=== PATIENT | female | born 2000 | race Caucasian/White ===

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

== ENCOUNTER → 2021-09-13 15:02 | Outpatient (BNVA) | payer BC, MEDICAID, SELFPAY | PROVIDERS: Family Provider Family Medicine; PCP Family Medicine; Visit Provider Nurse Practitioner Women's Health | DX: Z01.419 Encounter for gynecological examination (general) (routine) without abnormal findings (principal); Z12.72 Encounter for screening for malignant neoplasm of vagina | CPT/HCPCS: 88175 ==

== ENCOUNTER 2022-06-07 12:30 | Outpatient (CLI) | payer BC, MEDICAID, SELFPAY | END 2022-06-07 12:31 | disposition home or self-care (01) | LOC: SLEEP 06-08 12:56 | PROVIDERS: Family Provider Family Medicine; PCP Family Medicine; Visit Provider Physician Assistant | DX: G47.10 Hypersomnia, unspecified (principal) | CPT/HCPCS: G0399 ==

== ENCOUNTER 2022-10-11 11:56 | Outpatient (CLI) | payer BC, MEDICAID, SELFPAY ==
--- NOTE | 2022-10-11 11:45 | US_ITS ---
WS: [id number] ULTRASOUND LEFT BREAST HISTORY: Palpable LEFT breast mass, 22-year-old. COMPARISON: None available. TECHNIQUE: 2-D and Doppler. Ultrasound is directed to the superior LEFT breast at 11, 12 and 1:00 axes. No mass or soft tissue ab normality. US/US breast LT limited* [id number] IMPRESSION: BI-RADS: 1-Negative FOLLOW-UP: Age 40 LACK OF RADIOGRAPHIC EVIDENCE OF MALIGNANCY SHOULD NOT DELAY BIOPSY IF A CLINIC ALLY SUSPICIOUS MASS IS PRESENT.
== END 2022-10-11 11:57 | disposition home or self-care (01) ==
PROVIDERS: Visit Provider Nurse Practitioner Women's Health
DX: N63.20 Unspecified lump in the left breast, unspecified quadrant (principal)
CPT/HCPCS: 76642

== ENCOUNTER → 2023-03-18 17:27 | Outpatient (BNVA) | payer BC, MEDICAID, SELFPAY | PROVIDERS: Visit Provider Emergency Medicine | DX: M25.572 Pain in left ankle and joints of left foot (principal); M25.562 Pain in left knee; M25.472 Effusion, left ankle | CPT/HCPCS: 73562; 73610 ==

== ENCOUNTER → 2024-06-17 13:37 | Outpatient (BNVA) | payer BC, MEDICAID, SELFPAY | DX: Z98.84 Bariatric surgery status (principal) | CPT/HCPCS: 85025 ==

== ENCOUNTER 2025-03-26 06:45 | Emergency (ER) | payer MEDICAID, SELFPAY ==
[2025-03-26 07:04] VITALS: BP 154/86; PULSE 80; RESP 18; TEMP 37; O2SAT 97
--- NOTE | 2025-03-26 07:12 | W.ED.ABDPA2 ---
HPI - Abdominal Pain General: Chief Complaint: Abdominal Pain Stated Complaint: Low R ABD Pain going into back Time Seen by Provider: 03/26/25 06:56 History of Present Illness: 44-year-old female who presents to the emergency room with complaint of abdominal pain.. The initial stated complaints described lower right abdominal pain received the patient she indicated more upper abdominal pain particularly epigastric epigastric discomfort. She has previously had a Tahri-en-Y in January 2023 she has had her gallbladder out. No fever sweats or chills. She had some vaginal bleeding intermittent spotting nothing consistent. She denies dysuria urgency or frequency no history of kidney stones. Associated Symptoms: Denies chills, dysuria and fever(s) Related Data Home Medications ?Medication ?Instructions ?Recorded ?Confirmed levonorgestrel (Mirena) intrauterine 09/13/21 06/17/24 Previous Rx's ?Medication ?Instructions ?Recorded hydroxyzine HCl 10 mg tablet 10 mg PO TID PRN nausea and 12/18/23 vomiting #90 tabs Allergies Allergy/AdvReac Type Severity Reaction Status Date / Time NSAIDS (Non-Steroidal Allergy Unknown Verified 03/26/25 07:08 Anti-Inflamma Review of Systems Const: Denies: fever(s) or chills Card: Denies: chest pain Resp: Denies: dyspnea GI: Denies: abdominal pain : Denies: dysuria, urinary frequency or urinary urgency Musc: Denies: neck pain or back pain Skin/Breast: Denies: rash PFSH ED PFSH: Medical History GERD (gastroesophageal reflux disease) HAILE (generalized anxiety disorder) GLORIA (obstructive sleep apnea) Didn't tolerate CPAP Breast mass, left Benign Depression, controlled previously managed with prozac; 09/2019 managed w/o meds Hypertension -diagnosed with chronic hypertension in 2018 and has been on lisinopril prior to the . In the beginning of the was switched over to labetalol. She did not continue with medication after the and has not been evaluated by her PCP. Surgical History History of gastric bypass Tahir-en-y. Done in [facility]. 01/2023 [place] teeth extracted (~02/2021) History of cholecystectomy (~08/2019) History of (~05/30/19) primary low transverse delivery via Pfannenstiel incision. Double layer closure performed by Dr. Angeles at [facility] for arrest of dilation and descent Family History Family/Other Breast cancer Maternal aunt; diagnosed at age 40 Diabetes Paternal aunt, cousin Thyroid disease maternal aunt Colon cancer Paternal aunt; diagnosed at age 37 Father Diabetes Grandmother Diabetes Paternal Thyroid disease maternal Mother Thyroid disease Grandfather Stroke Paternal great grandfather Denies family history of Ovarian cancer Hypercholesteremia Hypertension Uterine cancer Social History Smoking and tobacco/nicotine status: never used tobacco/nicotine Substance/Drug Use: never Do you think of yourself as: Straight/Heterosexual Physical Exam Const: GENERAL APPEARANCE: cooperative ORIENTATION/CONSCIOUSNESS: Yes awake, Yes oriented to person, Yes oriented to place and Yes oriented to time HENMT: COMMON NORMALS: normocephalic, atraumatic and hearing grossly normal bilaterally HEAD & SCALP: normocephalic and atraumatic Resp: COMMON NORMALS: normal respiratory effort, No retractions, No use of accessory muscles and clear to auscultation bilaterally AUSCULTATION: clear to auscultation bilaterally Cardio: COMMON NORMALS: regular rate, regular rhythm and No murmurs present (Cardio) RATE: regular rate RHYTHM: regular rhythm GI: AUSCULTATION: Yes normoactive bowel sounds PALPATION: Yes Tenderness to palpation present (GI) (Epigastric right upper quadrant) and No Guarding due to palpation present (GI) Extremity: COMMON NORMALS: normal to inspection, capillary refill normal, no clubbing, cyanosis or edema, no calf tenderness and no pedal edema Neuro: SENSORIUM/ORIENTATION: Yes oriented to person, Yes oriented to place and Yes oriented to time Skin: COMMON NORMALS: no rashes or lesions noted GENERAL SKIN EXAM: no rashes or lesions noted Course Vital Signs: Vital signs: Vital Signs Temperature 98.6 F 03/26/25 07:04 Pulse Rate 73 03/26/25 08:02 Respiratory Rate 18 03/26/25 07:04 Blood Pressure 134/90 03/26/25 08:02 Pulse Oximetry 99 03/26/25 08:02 Oxygen Delivery Me thod Room Air 03/26/25 07:04 MDM - Abdominal Pain Medical Decision Making CBC UA CMP all negative CT did not show any acute pathology there is some air in the transverse colon retained stool suspect that may be causing abdominal cramping or colic. If they have continues to be benign. Discharge home clearcut diet for 24 hours advance as tolerated. Medical Records I reviewed the patient's medical records. Lab Data I reviewed the patient's lab results. 03/26/25 07:40 03/26/25 07:40 Labs/Radiology: Radiology Impressions Abdomen/Pelvis CT 03/26/25 07:19 IMPRESSION: 1. No evidence for appendicitis. Normal size of the appendix with appendicoliths. 2. Prior gastric bypass. 3. Increased air within the transverse colon and splenic flexure. High density material in the splenic flexure along with feces. High density material is most likely a medicinal in etiology. 4. Small amount of free fluid in the pelvis may be physiologic and related to an ovarian cyst rupture. 5. Normal position of IUD. 6. Prior cholecystectomy. Laboratory Results WBC 7.82 10^3/uL (3.29-11.43) 03/26/25 07:40 RBC 4.95 10^6/uL (3.85-5.65) 03/26/25 07:40 Hgb 14.60 g/dL (11.27-16.99) 03/26/25 07:40 Hct 43.4 % (36-47) 03/26/25 07:40 MCV 87.7 fl (85-98) 03/26/25 07:40 MCH 29.5 pg (27-33) 03/26/25 07:40 MCHC 33.6 g/dL (30-55) 03/26/25 07:40 RDW 12.1 % (12.1-15.1) 03/26/25 07:40 Plt Count 264 10^3/cmm (157-399) 03/26/25 07:40 MPV 10.1 fL (7.4-10.4) 03/26/25 07:40 Neut % (Auto) 72.6 % 03/26/25 07:40 Lymph % (Auto) 21.5 % 03/26/25 07:40 [place] % (Auto) 4.0 % 03/26/25 07:40 Eos % (Auto) 0.8 % 03/26/25 07:40 Baso % (Auto) 0.8 % 03/26/25 07:40 Neut # (Auto) 5.69 10^3/uL (1.8-7.7) 03/26/25 07:40 Lymph # (Auto) 1.7 10^3/uL (0.8-4.8) 03/26/25 07:40 [place] # (Auto) 0.3 10^3/uL (0.2-0.9) 03/26/25 07:40 Eos # (Auto) 0.1 10^3/uL (0.0-0.8) 03/26/25 07:40 Baso # (Auto) 0.1 10^3/uL (0.0-0.1) 03/26/25 07:40 Nucleated RBC % (auto) 0 % 03/26/25 07:40 Nucleated RBCs # 0.0 /100WBC 03/26/25 07:40 Sodium 142 mmol/L (136-145) 03/26/25 07:40 Potassium 4.1 mmol/L (3.5-5.1) 03/26/25 07:40 Chloride 106 mmol/L (98-107) 03/26/25 07:40 Carbon Dioxide 23 mmol/L (22-29) 03/26/25 07:40 Anion Gap 17.1 (5-19) 03/26/25 07:40 BUN 16 mg/dL (6-20) 03/26/25 07:40 Creatinine 0.6 mg/dL (0.5-0.9) 03/26/25 07:40 GFR Calculation 122.8 mL/min (90-130) 03/26/25 07:40 Glucose 91 mg/dL (65-115) 03/26/25 07:40 Calculated Osmolality 295 mOsm/kg (285-295) 03/26/25 07:40 Calcium 9.3 mg/dL (8.5-10.5) 03/26/25 07:40 Total Bilirubin 0.5 mg/dL (0.15-1.2) 03/26/25 07:40 AST 19 U/L (0-32) 03/26/25 07:40 ALT 21 U/L (0-33) 03/26/25 07:40 Alkaline Phosphatase 97 U/L (35-105) 03/26/25 07:40 Total Protein 7.2 g/dL (6.6-8.7) 03/26/25 07:40 Albumin 4.4 g/dL (3.5-5.2) 03/26/25 07:40 Globulin 2.8 g/dL (1.3-4.6) 03/26/25 07:40 Lipase 15 U/L (13-60) 03/26/25 07:40 HCG, Qual Negative (Negative) 03/26/25 07:40 Urine Color Dark yellow (Yellow) A 03/26/25 08:13 Urine Appearance Clear (CLEAR) 03/26/25 08:13 Urine pH 5.0 (5-7) 03/26/25 08:13 Ur Specific [place] 1.042 (1.005-1.030) H 03/26/25 08:13 Urine Protein 1+ (Negative) A 03/26/25 08:13 Urine Glucose (UA) Negative (Normal) 03/26/25 08:13 Urine Ketones 1+ (Negative) H 03/26/25 08:13 Urine Blood Negative (Negative) 03/26/25 08:13 Urine Nitrate Negative (Negative) 03/26/25 08:13 Urine Bilirubin 1+ (Negative) H 03/26/25 08:13 Urine Urobilinogen 1.0 mg/dL (Negative) 03/26/25 08:13 Ur Leukocyte Esterase Negative (Negative) 03/26/25 08:13 Urine RBC 0-2 /hpf (0-2) 03/26/25 08:13 Urine WBC 0-5 /hpf (0-5) 03/26/25 08:13 Ur Squamous Epith Cells 0-5 /hpf (0-5) 03/26/25 08:13 Amorphous Sediment Not Reportable 03/26/25 08:13 Urine Bacteria None seen /hpf (NONE) 03/26/25 08:13 Hyaline Casts 0.81 /lpf 03/26/25 08:13 Urine Mucus 2+ /hpf 03/26/25 08:13 All radiology interpretation(s) finalized by discharge Discharge Plan Discharge Patient Disposition: Home Clinical Impression: Abdominal pain Condition: Stable Prescriptions: No Action Mirena 20 mcg/24 hours (6 yrs) 52 mg intrauterine device intrauterine hydroxyzine HCl 10 mg tablet 10 mg PO TID PRN (Reason: nausea and vomiting) Qty: 90 1RF Discharge Orders: Discharge ED (Routine); Ordered 03/26/25 Ordered By: Aric Wood Discharge Diet: Clear Liquid Discharge Activity: Increase activity as tolerated Patient Instructions: Abdominal Pain (ED), Opioid Safety, Pain Management, Patient Portal & Eusebio Instructions Activity Restrictions/Additional Instructions: [facility]. It is very important that you follow up as instructed or that you return to the Emergency Department should you have concerns or if your condition changes or worsens in any way. You are seen in the emergency room with complaints of abdominal pain CT of your abdomen was negative your other labs including white count chemistries renal function electrolytes and urine were all also negative. Recommend clear liquid diet for 24 hours and advance as tolerated. On the CT there is an area of your colon that does have some retained air and feces this is likely the cause of your pain. There is no sign of obstruction at this time. Print Language: Kittitian Coding Level of Care Code ED Transplant Nurse Practitioner for Ronald Shah
--- NOTE | 2025-03-26 07:19 | CT_ITS ---
WS: [id number] CT ABDOMEN AND PELVIS WITH CONTRAST HISTORY: abd pain, lower abdominal pain with nausea. TECHNIQUE: Imaging performed of the abdomen and pelvis with IV contrast. Single phase imaging of the abdomen. Coronal and sagittal reformats are submitted. All CT scans at [facility] use at least one of these dose optimization techniques: automated exposure control; mA and/or kV adjustment per patient size (includes targeted exams where dose is matched to clinical indication); or iterative reconstruction. IV CONTRAST: Omnipaque 350; 100 mL IV. Oral contrast: No DLP: 1153.73 mGy.cm COMPARISON: None available. Lower thorax: Lung bases are clear. Heart is normal size. No hiatal hernia. Liver/biliary system: Normal size with no intrahepatic dilatation. Gallbladder: Prior cholecystectomy. Pancreas: Normal size pancreas and pancreatic duct. No adjacent inflammation. Spleen: Normal size spleen. No mass or infarct. Adrenal glands: Normal. Right kidney: Normal. Left kidney: Normal. Aorta: Normal. Lymphadenopathy: None. Free fluid: Small amount of free fluid in the pelvis. GI tract: Prior gastric bypass surgery. Stomach is not distended. No small bowel obstruction. Appendix is normal size. Small appendicoliths are present. Increased air in the transverse colon. Increased fecal material with high density calcific material near the splenic flexure. High density material is probably from a medicinal tablet. There is no obstructive pattern at this time. Abdominal wall: Fat containing umbilical hernia. Pelvis: Small amount of physiologic free fluid in the pelvis. IUD is also present in the uterus. Bones: Unremarkable. CT/CT abdomen pelvis w con* [id number] IMPRESSION: 1. No evidence for appendicitis. Normal size of the appendix with appendicolit hs. 2. Prior gastric bypass. 3. Increased air within the transverse colon and splenic flexure. High density material in the splenic flexure along with feces. High density material is mos t likely a medicinal in etiology. 4. Small amount of free fluid in the pelvis may be physiologic and related to an ovarian cyst rupture. 5. Normal position of IUD. 6. Prior cholecystectomy.
[2025-03-26 07:54] LABS: Hematocrit 43.4 % (36-47); Hemoglobin 14.60 g/dL (11.27-16.99); Mean Corpuscular HGB Conc 33.6 g/dL (30-55); Mean Corpuscular Hemoglobin 29.5 pg (27-33); Mean Corpuscular Volume 87.7 fl (85-98); Nucleated Red Blood Cells % 0 %; Platelet Count 264 10^3/cmm (157-399); Red Blood Count 4.95 10^6/uL (3.85-5.65); White Blood Count 7.82 10^3/uL (3.29-11.43)
[2025-03-26 08:02] VITALS: BP 134/90; PULSE 73; O2SAT 99
[2025-03-26 08:12] LABS: Alanine Aminotransferase 21 U/L (0-33); Albumin Level 4.4 g/dL (3.5-5.2); Alkaline Phosphatase 97 U/L (35-105); Anion Gap 17.1 (5-19); Aspartate Amino Transferase 19 U/L (0-32); Blood Urea Nitrogen 16 mg/dL (6-20); Calcium 9.3 mg/dL (8.5-10.5); Carbon Dioxide 23 mmol/L (22-29); Chloride 106 mmol/L (98-107); Creatinine Clr Calc Pharmacy 207.4371; Globulin 2.8 g/dL (1.3-4.6); Glucose 91 mg/dL (65-115); Lipase 15 U/L (13-60); Osmolality Calculated 295 mOsm/kg (285-295); Potassium 4.1 mmol/L (3.5-5.1); Sodium 142 mmol/L (136-145); Total Protein 7.2 g/dL (6.6-8.7)
[2025-03-26 08:18] LABS: HCG, Serum Qual Negative (Negative)
[2025-03-26 08:22] LABS: Glucose Urine UA Negative (Normal); Nitrate Urine Negative (Negative)
[2025-03-26 08:28] LABS: Add Urine Microscopic? YES
[2025-03-26] MEDS: iohexol 350 mg/mL 500 mL Btl (per mL) IV (08:44)
[2025-03-26 08:54] LABS: Specific Gravity, Urine 1.042 (1.005-1.030)
[2025-03-26 08:55] LABS: UA Slide Review UA Slide Review Perf
[2025-03-26 09:56] VITALS: BP 119/78; PULSE 71; O2SAT 98
== END 2025-03-26 10:00 | disposition home or self-care (01) ==
PROVIDERS: Emergency Provider Family Medicine
DX: R10.31 Right lower quadrant pain (principal); I10 Essential (primary) hypertension
CPT/HCPCS: 36415; 74177; 80053; 81001; 83690; 84703; 85025; 99285

== ENCOUNTER → 2025-05-28 09:41 | Outpatient (BNVA) | payer MEDICAID, SELFPAY | PROVIDERS: Visit Provider Nurse Practitioner Women's Health | DX: Z12.4 Encounter for screening for malignant neoplasm of cervix (principal) | CPT/HCPCS: 87624 ==

== ENCOUNTER 2025-06-18 11:15 | Inpatient (IN) | payer MEDICAID, SELFPAY ==
[2025-06-18] VITALS (31 sets, daily range): BP systolic 115–139; BP diastolic 63–89; PULSE 20–116; RESP 13–20; TEMP 36.6–37; O2SAT 85–100
--- NOTE | 2025-06-18 11:25 | ECG_ITS ---
[facility] Test Date: 2025-06-18 Pat Name: Lakeshia Rider Department: Room: Gender: Female Secondary Art Teacher: : 2000 Requested By: Mirtha Ojeda Order Number: [id number] Gopal MD: Priyank Hartley M.D. Measurements Intervals [place] Rate: 74 P: 2 CO: 165 QRS: 16 QRSD: 80 T: 10 QT: 360 QTc: 401 Interpretive Statements SINUS RHYTHM LOW QRS VOLTAGE IN PRECORDIAL LEADS [QRS DEFLECTION < 1.0 mV IN CHEST LEADS] No previous ECG available for comparison Electronically Signed On 06-19-2025 13:09:19 BENEFITS PROCESSOR by Priyank Hartley M.D. [id number]
--- NOTE | 2025-06-18 11:26 | ED.C_ITS ---
HPI - Psych 2 General: Chief Complaint: Overdose Stated Complaint: over dose Time Seen by Provider: 06/18/25 11:23 History of Present Illness: 24-year-old female with a history of dep ression who was recently started on Wellbutrin who took approximately fourteen 150 mg Wellbutrin tablets just over an hour ago and attempt to kill herself. She has a depressed affect. She says she has been thinking about doing this. Nothing in particular or inciting that caused it. No altered mental status. No focal motor deficits. No difficulty breathing. Related Data Home Medications ?Medication ?Instructions ?Recorded ?Confirmed bupropion HCl 150 mg 24 hr tablet, 150 mg PO DAILY 06/18/25 extended release Allergies Allergy/AdvReac Type Severity Reaction Status Date / Time NSAIDS (Non-Steroidal Allergy Unknown Verified 05/28/25 08:29 Anti-Inflamma Review of Systems 2 Narrative: Constitutional symptoms: Negative except as documented in HPI. Skin symptoms: Negative except as documented in HPI. Eye symptoms: Negative except as documented in HPI. ENMT symptoms: Negative except as documented in HPI. Respiratory symptoms: Negative except as documented in HPI. Cardiovascular symptoms: Negative except as documented in HPI. Gastrointestinal symptoms: Negative except as documented in HPI. Genitourinary symptoms: Negative except as documented in HPI. Musculoskeletal symptoms: Negative except as documented in HPI. Neurologic symptoms: Negative except as documented in HPI. Psychiatric symptoms: Negative except as documented in HPI. Endocrine symptoms: Negative except as documented in HPI. PFSH ED 2 PFSH: Medical History (Updated 06/18/25 @ 13:04 by Mirtha Rosales MD) GERD (gastroesophageal reflux disease) HAILE (generalized anxiety disorder) GLORIA (obstructive sleep apnea) Didn't tolerate CPAP Breast mass, left Benign Depression, controlled previously managed with prozac; 09/2019 managed w/o meds Hypertension -diagnosed with chronic hypertension in 2018 and has been on lisinopril prior to the . In the beginning of the was switched over to labetalol. She did not continue with medication after the and has not been evaluated by her PCP. Surgical History History of gastric bypass Tahir-en-y. Done in [facility]. 01/2023 [place] teeth extracted (~02/2021) History of cholecystectomy (~08/2019) History of (~05/30/19) primary low transverse delivery via Pfannenstiel incision. Double layer closure performed by Dr. Angeles at [facility] for arrest of dilation and descent Family History Family/Other Breast cancer Maternal aunt; diagnosed at age 40 Diabetes Paternal aunt, cousin Thyroid disease maternal aunt Colon cancer Paternal aunt; diagnosed at age 37 Father Diabetes Grandmother Diabetes Paternal Thyroid disease maternal Mother Thyroid disease Grandfather Stroke Paternal great grandfather Denies family history of Ovarian cancer Hypercholesteremia Hypertension Uterine cancer Social History Smoking and tobacco/nicotine status: former use of tobacco/nicotine Substance/Drug Use: never Do you think of yourself as: Straight/Heterosexual Physical Exam 2 Narrative: EXAM NARRATIVE: General: Alert, no acute distress. Skin: Warm, dry. Head: Normocephalic, atraumatic. Neck: Supple, trachea midline. Eye: Extraocular movements are intact. Ears, nose, mouth and throat: mucosa moist. Cardiovascular: Regular, Normal peripheral perfusion. Respiratory: Lungs are clear to auscultation, respirations are non-labored, breath sounds are equal, Symmetrical chest wall expansion. Gastrointestinal: Soft, Nontender, Non distended Musculoskeletal: Normal ROM, no deformity. Neurological: Alert and oriented, No focal neurological deficit observed. Psychiatric: Cooperative, depressed affect. Does endorse that she took the medication as a suicide attempt Course 2 Vital Signs: Vital signs: Vital Signs Temperature 98.6 F 06/18/25 11:28 Pulse Rate 86 06/18/25 12:47 Respiratory Rate 14 06/18/25 12:47 Blood Pressure 127/85 06/18/25 12:47 Pulse Oximetry 100 06/18/25 12:47 Oxygen Delivery Me thod Room Air 06/18/25 12:47 MDM - Psych Medical Decision Making Medical decision making: Patient's reason for coming to the emergency room Social determinants: Patient is employed I reviewed the patient's medical record. Last seen in the emergency room in March for abdominal pain. I reviewed the patient's current home meds Patient was recently started on Wellbutrin. Alternate historians: None available Differential diagnosis: Patient with reported depression and suicidal ideation. concerns for infection, alcohol intoxication, cardiac issues or other medical problems prior to psychiatric admission. Workup: labwork, ekg ordered to evaluate the pathologies and to clear the patient medically prior to psychiatric admission EKG: Time 11:25 AM. Rate 74. Normal sinus rhythm, No ST-T changes, no ectopy, normal SC & QRS intervals, This was reviewed and interpreted by myself the ER physician at 11:30 AM Lab Review: Laboratory results were reviewed and interpreted by myself the emergency room physician. - Medically cleared. - EKG shows no ischemic changes. - Blood alcohol level is negative, -Tylenol and salicylate levels are negative. - Urinalysis and drug screen are pending at the time of admission. - No anemia. - BUN and creatinine are within normal limits. Assessment of risk: - Level of risk high risk patient. Depression with an active suicide attempt with overdose. - Was hospitalization considered? Patient is being admitted Reexamination: Patient remained stable. No increased work of breathing. No altered mental status. No focal motor deficits. Consultation: For spoke with Dr. Wood who is on-call for psychiatry. He will admit the patient to the psychiatry unit once she is cleared medically. Consultation: Poison control was consulted. They recommend 12 hours of observation to watch for seizures etc. Consultation: I spoke with Dr. Beltran with the hospitalist service who agrees to admission to the ICU for continued medical observation until she is cleared to go to the psychiatric unit Assessment and plan: Depression Suicidal ideation Wellbutrin overdose -Admission to ICU, then neuropsychiatric unit for continued evaluation and treatment. - All lab work was reviewed and interpreted personally by myself, the ER physician - Evaluation and treatment of this problem were appropriate in the emergency setting Lab Data 06/18/25 11:30 06/18/25 11:30 Laboratory Results WBC 8.21 10^3/uL (3.29-11.43) 06/18/25 11:30 RBC 5.19 10^6/uL (3.85-5.65) 06/18/25 11:30 Hgb 15.20 g/dL (11.27-16.99) 06/18/25 11:30 Hct 44.6 % (36-47) 06/18/25 11:30 MCV 85.9 fl (85-98) 06/18/25 11:30 MCH 29.3 pg (27-33) 06/18/25 11:30 MCHC 34.1 g/dL (30-55) 06/18/25 11:30 RDW 12.5 % (12.1-15.1) 06/18/25 11:30 Plt Count 279 10^3/cmm (157-399) 06/18/25 11:30 MPV 10.3 fL (7.4-10.4) 06/18/25 11:30 Neut % (Auto) 68.2 % 06/18/25 11:30 Lymph % (Auto) 24.0 % 06/18/25 11:30 [place] % (Auto) 5.6 % 06/18/25 11:30 Eos % (Auto) 1.1 % 06/18/25 11:30 Baso % (Auto) 0.9 % 06/18/25 11:30 Neut # (Auto) 5.60 10^3/uL (1.8-7.7) 06/18/25 11:30 Lymph # (Auto) 2.0 10^3/uL (0.8-4.8) 06/18/25 11:30 [place] # (Auto) 0.5 10^3/uL (0.2-0.9) 06/18/25 11:30 Eos # (Auto) 0.1 10^3/uL (0.0-0.8) 06/18/25 11:30 Baso # (Auto) 0.1 10^3/uL (0.0-0.1) 06/18/25 11:30 Nucleated RBC % (auto) 0 % 06/18/25 11:30 Nucleated RBCs # 0.0 /100WBC 06/18/25 11:30 Sodium 143 mmol/L (136-145) 06/18/25 11:30 Potassium 3.8 mmol/L (3.5-5.1) 06/18/25 11:30 Chloride 106 mmol/L (98-107) 06/18/25 11:30 Carbon Dioxide 23 mmol/L (22-29) 06/18/25 11:30 Anion Gap 17.8 (5-19) 06/18/25 11:30 BUN 12 mg/dL (6-20) 06/18/25 11:30 Creatinine 0.6 mg/dL (0.5-0.9) 06/18/25 11:30 GFR Calculation 122.8 mL/min (90-130) 06/18/25 11:30 Glucose 87 mg/dL (65-115) 06/18/25 11:30 Calculated Osmolality 295 mOsm/kg (285-295) 06/18/25 11:30 Calcium 9.3 mg/dL (8.5-10.5) 06/18/25 11:30 Total Bilirubin 0.7 mg/dL (0.15-1.2) 06/18/25 11:30 AST 22 U/L (0-32) 06/18/25 11:30 ALT 20 U/L (0-33) 06/18/25 11:30 Alkaline Phosphatase 92 U/L (35-105) 06/18/25 11:30 Total Protein 7.4 g/dL (6.6-8.7) 06/18/25 11:30 Albumin 4.6 g/dL (3.5-5.2) 06/18/25 11:30 Globulin 2.8 g/dL (1.3-4.6) 06/18/25 11:30 TSH 1.73 uIU/mL (0.27-4.20) 06/18/25 11:30 Salicylates < 0.3 mg/dL (3-10) L 06/18/25 11:30 Acetaminophen < 5.0 ug/mL (10-30) L 06/18/25 11:30 Ethyl Alcohol < 10 mg/dL (0-10) 06/18/25 11:30 No radiology studies performed this visit Discharge Plan Discharge Patient Disposition: Admitted As Inpatient Clinical Impression: Drug overdose, Depression, Suicidal ideation Condition: Stable Coding Level of Care Code ED [employer] for Ronald Shah
--- NOTE | 2025-06-18 11:32 | PC.NURSE ---
POISON CONTROLLED CONTACTED ABOUT PATIENT CONSUMPTION OF 15 WELLBUTRIN 150 MG. PEAKS IN 3-5 HOURS, COULD EXTEND TO 12 HOURS WITH FOOD. WHAT TO LOOK FOR AGITATION, TREMORS, ELEVATED HR AND BP. SEIZURES UP TO 24 HOURS.
[2025-06-18 11:41] LABS: Hematocrit 44.6 % (36-47); Hemoglobin 15.20 g/dL (11.27-16.99); Mean Corpuscular HGB Conc 34.1 g/dL (30-55); Mean Corpuscular Hemoglobin 29.3 pg (27-33); Mean Corpuscular Volume 85.9 fl (85-98); Nucleated Red Blood Cells % 0 %; Platelet Count 279 10^3/cmm (157-399); Red Blood Count 5.19 10^6/uL (3.85-5.65); White Blood Count 8.21 10^3/uL (3.29-11.43)
--- NOTE | 2025-06-18 12:03 | PC.NURSE ---
Pt was read her 96 hour hold rights with security present
[2025-06-18 12:09] LABS: Alanine Aminotransferase 20 U/L (0-33); Albumin Level 4.6 g/dL (3.5-5.2); Alkaline Phosphatase 92 U/L (35-105); Blood Urea Nitrogen 12 mg/dL (6-20); Calcium 9.3 mg/dL (8.5-10.5); Carbon Dioxide 23 mmol/L (22-29); Chloride 106 mmol/L (98-107); Creatinine Clr Calc Pharmacy 199.5691; Globulin 2.8 g/dL (1.3-4.6); Glucose 87 mg/dL (65-115); Osmolality Calculated 295 mOsm/kg (285-295); Sodium 143 mmol/L (136-145); Thyroid Stimulating Hormone 1.73 uIU/mL (0.27-4.20); Total Protein 7.4 g/dL (6.6-8.7)
[2025-06-18 12:13] LABS: Acetaminophen < 5.0 ug/mL (10-30); Alcohol Level < 10 mg/dL (0-10); Anion Gap 17.8 (5-19); Potassium 3.8 mmol/L (3.5-5.1); Salicylate < 0.3 mg/dL (3-10)
[2025-06-18 12:14] LABS: Aspartate Amino Transferase 22 U/L (0-32)
--- NOTE | 2025-06-18 13:34 | PC.NURSE ---
Gave update to Marlene with Poison Control, no further recommendations at this time
--- NOTE | 2025-06-18 15:00 | P.HP_ITS ---
Providers/Chief Complaint 2 Admitting Physician: Kyaw Beltran MD Chief Complaint: over dose History of Present Illness Lakeshia Rider is a 24 year old female with history of depression, who presented to the ER this morning because of intentional overdose her Wellbutrin. She reports taking about 15 pills of Wellbutrin, each 300 mg. The overdose was intentional, with intent of suicide. Thereafter, the boyfriend brought her to the ER for further evaluation. She reports going through some divorce at the moment, which further prompted her action. She has been since June last year, 12 months ago. Patient reports prior history of self-harm. Last episode of self-harm, which involves cutting herself, happened about 9 years ago. She reports having been having episodes of depression and suicidal ideation since she was 12. At the time of seeing patient, she reports feeling dejected. Otherwise, she denies any palpitation, headache, dizziness, or any CV symptoms. She complains of some nausea, but no vomiting. While in the ER, poison control agency was contacted by the ER personnel, who advised admission and close monitoring. No specific antidotes were recommended. Review of Systems 2 Narrative: 10 points review of system done, and ess entially negative, except as in the HPI. Medications/Allergies Home Medications ?Medication ?Instructions ?Recorded ?Confirmed ?Last Taken ?Type bupropion HCl 150 mg 24 hr tablet, 150 mg PO DAILY 06/18/25 06/18/25 History extended release Allergies Allergy/AdvReac Type Severity Reaction Status Date / Time NSAIDS (Non-Steroidal Allergy Unknown Verified 05/28/25 08:29 Anti-Inflamma PFSH Acute 2 PFSH: Medical History GERD (gastroesophageal reflux disease) HAILE (generalized anxiety disorder) GLORIA (obstructive sleep apnea) Didn't tolerate CPAP Breast mass, left Benign Depression, controlled previously managed with prozac; 09/2019 managed w/o meds Hypertension -diagnosed with chronic hypertension in 2018 and has been on lisinopril prior to the . In the beginning of the was switched over to labetalol. She did not continue with medication after the and has not been evaluated by her PCP. Surgical History History of gastric bypass Tahir-en-y. Done in [facility]. 01/2023 [place] teeth extracted (~02/2021) History of cholecystectomy (~08/2019) History of (~05/30/19) primary low transverse delivery via Pfannenstiel incision. Double layer closure performed by Dr. Angeles at [facility] [place] for arrest of dilation and descent Family History Family/Other Breast cancer Maternal aunt; diagnosed at age 40 Diabetes Paternal aunt, cousin Thyroid disease maternal aunt Colon cancer Paternal aunt; diagnosed at age 37 Father Diabetes Grandmother Diabetes Paternal Thyroid disease maternal Mother Thyroid disease Grandfather Stroke Paternal great grandfather Denies family history of Ovarian cancer Hypercholesteremia Hypertension Uterine cancer Social History Smoking and tobacco/nicotine status: former use of tobacco/nicotine Substance/Drug Use: never Do you think of yourself as: Straight/Heterosexual Vitals/I&O/Wt Last Vital Signs Temp 98.6 F 06/18/25 11:28 Pulse 75 06/18/25 13:32 Resp 17 06/18/25 13:32 BP 121/63 06/18/25 13:32 Pulse Ox 100 06/18/25 13:32 O2 Del Method Room Air 06/18/25 14:00 Weight last 48 hrs Weight 118 kg Weight 119.295 kg Physical Exam 2 Narrative: General: Awake and alert. No obvious respiratory distress. Neuro/Psych: Cooperative. Oriented x 3 Chest/Resp: Bilateral equal air entry; chest clinically clear. CVS: Rhythm: Regular heart rate and rhythm. No obvious murmurs appreciated. GI: Soft and non-tender abdomen. No obvious organomegaly. Extremities: Bilateral equal pulses. No obvious pitting pedal edema. MSK: No obvious joint deformities or bony deformities. Skin: No gross rashes or abnormal skin lesions. Data 06/18/25 11:30 06/18/25 11:30 A&P Assessment and plan 1. Drug overdose, intentional: 2. Suicide attempt: Plan: Admit to the ICU. Monitor closely. Suicide precautions. One-on-one sitter for 24 hours, at least. Monitor closely on telemetry. Repeat metabolic panel in the morning. Otherwise, further advised by poison control. Anticipate discharge to inpatient psych upon medical stability. Further plans to be adjusted as clinically patient evolves. PDMP PDMP Reviewed: Not Reviewed Attestations 2 Medical Necessity Statement*: Patient with suicide attempt. Will need close monitoring with safe care unit. See assessment and plan above for more details. Coding Level of Care Code Acute Code for Chg Fwd Diagnoses Drug overdose, intentional T50.902A Suicide attempt T14.91XA
[2025-06-18 20:02] LABS: Glucose Urine UA Negative (Normal); Nitrate Urine Negative (Negative); Specific Gravity, Urine 1.028 (1.005-1.030)
[2025-06-18 20:06] LABS: Add Urine Microscopic? YES
[2025-06-18 20:09] LABS: HCG Qualitative Urine. Negative (Negative); PCP Screen Urine Negative (Negative)
[2025-06-18 20:19] LABS: UA Slide Review UA Slide Review Perf
--- NOTE | 2025-06-18 22:30 | PC.NURSE ---
Poison control update: Sasha from poison control was given an update regarding patient's condition. Patient's vital signs currently stable, patient is A&O x 4 with no tremors or signs of seizures. Poison control gave instructions to monitor for possible seizures until 24 hours has been reached.
[2025-06-19] VITALS (27 sets, daily range): BP systolic 113–151; BP diastolic 67–98; PULSE 67–103; RESP 12–21; TEMP 36.2–37.1; O2SAT 96–100; BMI 38.1
[2025-06-19 05:22] LABS: Hematocrit 41.5 % (36-47); Hemoglobin 13.90 g/dL (11.27-16.99); Mean Corpuscular HGB Conc 33.5 g/dL (30-55); Mean Corpuscular Hemoglobin 29.3 pg (27-33); Mean Corpuscular Volume 87.6 fl (85-98); Nucleated Red Blood Cells % 0 %; Platelet Count 236 10^3/cmm (157-399); Red Blood Count 4.74 10^6/uL (3.85-5.65); White Blood Count 6.33 10^3/uL (3.29-11.43)
[2025-06-19 05:40] LABS: Alanine Aminotransferase 17 U/L (0-33); Albumin Level 4.1 g/dL (3.5-5.2); Alkaline Phosphatase 85 U/L (35-105); Anion Gap 16.6 (5-19); Aspartate Amino Transferase 17 U/L (0-32); Blood Urea Nitrogen 9 mg/dL (6-20); Calcium 9.0 mg/dL (8.5-10.5); Carbon Dioxide 23 mmol/L (22-29); Chloride 104 mmol/L (98-107); Globulin 2.5 g/dL (1.3-4.6); Glucose 84 mg/dL (65-115); Magnesium 2.0 mg/dL (1.7-2.3); Osmolality Calculated 288 mOsm/kg (285-295); Potassium 3.6 mmol/L (3.5-5.1); Sodium 140 mmol/L (136-145); Total Protein 6.6 g/dL (6.6-8.7)
--- NOTE | 2025-06-19 06:40 | PC.NURSE ---
Diarrhea: Patient had a loose stool that contained multiple pills that had passed. Patient stated she thinks it is the Welbutrin she took.
--- NOTE | 2025-06-19 11:46 | PM.PN ---
Vitals/I&O/Wt Last Vital Signs Temp 98.2 F 06/19/25 08:00 Pulse 103 H 06/19/25 10:00 Resp 16 06/19/25 10:00 BP 137/70 06/19/25 10:00 Pulse Ox 96 06/19/25 10:00 O2 Del Method Room Air 06/19/25 10:00 06/18/25 06/19/25 06/19/25 22:59 06:59 14:59 Intake Total 0 / 0 2362.584 / 2362.584 535.416 / 535.416 Output Total 200 / 200 Balance -200 / -200 2362.584 / 2162.584 535.416 / 535.416 Weight last 48 hrs Weight 117.2 kg Weight 118 kg Weight 119.295 kg Data 06/19/25 05:05 06/19/25 05:05 A&P PDMP PDMP Reviewed: Not Reviewed Coding Level of Care Code Acute Code for Chg Alyssa
--- NOTE | 2025-06-19 14:08 | P.NPUHP_ITS ---
Providers/Chief Complaint 2 Admitting Physician: Kyaw Beltran MD Chief Complaint: Overdose on Wellbutrin [facility] NPU History of Present Illness Lakeshia Rider is a 24 year old female who presented to the emergency department with the following report: Chief Complaint: Overdose Stated Complaint: over dose Time Seen by Provider: 06/18/25 11:23 History of Present Illness: 24-year-old female with a history of depression who was recently started on Wellbutrin who took approximately fourteen 150 mg Wellbutrin tablets just over an hour ago and attempt to kill herself. She has a depressed affect. She says she has been thinking about doing this. Nothing in particular or inciting that caused it. No altered mental status. No focal motor deficits. No difficulty breathing. She was admitted to the ICU for definitive treatment of those issues secondary to concerns for seizures after the Wellbutrin overdose. The plan was then to have her transferred to the neuropsychiatric unit. A psychiatric consult was requested in the event that she did not come to the unit quickly. She is unknown to [facility] psychiatry through inpatient or outpatient services. She presented today fairly stoic but acknowledging that things have gotten to a place where she did attempt to kill herself. She reports that there are many factors that that this was not prepared to review those at the moment. She endorsed an understanding of the need for continued inpatient psychiatric care and we discussed the fact that she would be going to the neuropsychiatric unit shortly after transfer orders were placed and will be seen throughout the weekend and the likelihood it would be with continued reports of syncope she could be discharged at some point next week. We discussed given her behavior that led to the hospitalization and observation in the ICU that there would not be discharged prior to that. She denied any major incident that led to her action and we reported that we would work with her to find a alternative medication for the Wellbutrin once we have a better understanding of her history. She denied any current issues with any prescribed medications. Meds NPU Home Medications ?Medication ?Instructions ?Recorded ?Confirmed ?Last Taken ?Type bupropion HCl 150 mg 24 hr tablet, 150 mg PO DAILY 06/18/25 06/18/25 History extended release Allergies Allergy/AdvReac Type Severity Reaction Status Date / Time NSAIDS (Non-Steroidal Allergy Unknown Verified 05/28/25 08:29 Anti-Inflamma PFSH NPU 2 PFSH: Medical History (Updated 06/20/25 @ 00:00 by LIGIA Ribeiro) GERD (gastroesophageal reflux disease) HAILE (generalized anxiety disorder) GLORIA (obstructive sleep apnea) Didn't tolerate CPAP Breast mass, left Benign Depression, controlled previously managed with prozac; 09/2019 managed w/o meds Hypertension -diagnosed with chronic hypertension in 2018 and has been on lisinopril prior to the . In the beginning of the was switched over to labetalol. She did not continue with medication after the and has not been evaluated by her PCP. Surgical History (Updated 06/20/25 @ 00:00 by LIGIA Ribeiro) History of gastric bypass Tahir-en-y. Done in [facility]. 01/2023 [place] teeth extracted (~02/2021) History of cholecystectomy (~08/2019) History of (~05/30/19) primary low transverse delivery via Pfannenstiel incision. Double layer closure performed by Dr. Angeles at [facility] [place] for arrest of dilation and descent Family History Family/Other Breast cancer Maternal aunt; diagnosed at age 40 Diabetes Paternal aunt, cousin Thyroid disease maternal aunt Colon cancer Paternal aunt; diagnosed at age 37 Father Diabetes Grandmother Diabetes Paternal Thyroid disease maternal Mother Thyroid disease Grandfather Stroke Paternal great grandfather Denies family history of Ovarian cancer Hypercholesteremia Hypertension Uterine cancer Social History Smoking and tobacco/nicotine status: former use of tobacco/nicotine Substance/Drug Use: never Do you think of yourself as: Straight/Heterosexual Mental Status Exam 2 MSE Comments: This is an obese white female in hospital gown with limited grooming but adequate eye contact. No abnormal movements except for mild psychomotor retardation. Cooperative with exam and mild distress. Speech was decreased rate and volume. Mood described as struggling but doing his best as I can, affect congruent. Thought process organized. Thought content: Patient denied current suicidal or homicidal ideation, there were no delusions reported or noted, she denied any auditory or visual hallucinations. Attention and concentration were intact and memory appeared reliable but none were formally tested. She is alert and oriented x 3. Insight and judgment are limited impulse control impaired. Vitals/I&O/Wt Last Vital Signs Temp 98.0 F 06/19/25 12:00 Pulse 97 06/19/25 14:00 Resp 18 06/19/25 14:00 BP 150/93 06/19/25 14:00 Pulse Ox 98 06/19/25 14:00 O2 Del Method Room Air 06/19/25 14:00 06/18/25 06/19/25 06/19/25 22:59 06:59 14:59 Intake Total 0 / 0 2362.584 / 2362.584 835.416 / 835.416 Output Total 200 / 200 Balance -200 / -200 2362.584 / 2162.584 835.416 / 835.416 Weight last 48 hrs Weight 117.2 kg Weight 118 kg Weight 119.295 kg Data NPU 06/19/25 05:05 06/19/25 05:05 A&P Assessment and plan 1. HAILE (generalized anxiety disorder): 2. Depression: 3. Drug overdose, intentional: 4. Suicide attempt: Plan: This is a 24-year-old white female with a long history of mental health issues and psychosocial stressors but unknown to the psychiatry service line who presents after a significant suicide attempt that led to initial observation in the ICU preparing for transfer to the neuropsychiatric unit. 1. Continue current medication except for discontinue Wellbutrin XL. 2. Transferred to the neuropsychiatric unit when medically stable. 3. Encourage individual, group and milieu therapy. 4. Switch to every 15 minute checks after she reaches the unit. 5. Encourage sober living treatment after discharge at the highest level care to which she is willing to commit. 6. Obtain collateral information. 7. Observe against the backdrop of the 96-hour hold. PDMP PDMP Reviewed: Not Reviewed Attestations NPU 2 Medical Necessity Statement*: Inpatient hide lesion is medically necessary and the clinically appropriate intervention at this time. We will monitor/initiate medications and make changes as indicated. She will be in the hospital for over 2 midnights. Likely length of stay 4-6 days. Coding Level of Care Code Acute Code for Chg Fwd Diagnoses HAILE (generalized anxiety disorder) F41.1 Depression F32.A Drug overdose, intentional T50.902A Suicide attempt T14.91XA
--- NOTE | 2025-06-19 16:02 | PM.TDS ---
Transfer Summary Providers Date of Admission: 06/18/25 13:32 Date of Discharge/Transfer: 06/19/25 Attending Provider at Admission: Kyaw Beltran MD Attending Provider at Transfer: Kyaw Beltran MD Consults: Psychiatry Transfer Plans: Anticipated date of transfer: 06/19/25. Receiving Facility: Inpatient psychiatry. Receiving Provider: Dr. Wood, the psychiatrist. Diagnoses at Discharge Discharge Diagnosis 1. Drug overdose, intentional: 2. Suicide attempt: Reason for Visit Reason for Visit Overdose on Wellbutrin Brief History: Patient was brought to the ER after taking about 40 pills of 200 mg of Wellbutrin for intentional purpose of harming herself.. During ER, she was stable. Poison control was contacted from the ER, who advised to watch the patient in about 12 to 24 hours closely. Hospital Course Hospital Course Patient was monitored on telemetry, while she was cautiously rehydrated. Suicide precautions were taken. Other symptoms were treated empirically. As of this morning, she developed mild tachycardia, which was further controlled with low-dose diltiazem. Given stable symptoms after 2023 hrs., she is therefore deemed medically stable to be transferred to the psych floor, where she will be further treated and managed by Dr. Wood, the psychiatrist. See my discharge/transfer orders for more details Physical Exam Narrative: General: Awake and alert. No obvious respiratory distress. Neuro/Psych: Cooperative. Oriented x 3 Chest/Resp: Bilateral equal air entry; chest clinically clear. CVS: Rhythm: Regular heart rate and rhythm. No obvious murmurs appreciated. GI: Soft and non-tender abdomen. No obvious organomegaly. Extremities: Bilateral equal pulses. No obvious pitting pedal edema. TS Data Studies Completed and Pending Pending at discharge Category Date Time Status Urine Culture Stat Lab 06/18/25 19:45 Received Laboratory Last Values WBC 6.33 10^3/uL (3.29-11.43) 06/19/25 05:05 RBC 4.74 10^6/uL (3.85-5.65) 06/19/25 05:05 Hgb 13.90 g/dL (11.27-16.99) 06/19/25 05:05 Hct 41.5 % (36-47) 06/19/25 05:05 MCV 87.6 fl (85-98) 06/19/25 05:05 MCH 29.3 pg (27-33) 06/19/25 05:05 MCHC 33.5 g/dL (30-55) 06/19/25 05:05 RDW 12.5 % (12.1-15.1) 06/19/25 05:05 Plt Count 236 10^3/cmm (157-399) 06/19/25 05:05 MPV 10.2 fL (7.4-10.4) 06/19/25 05:05 Neut % (Auto) 63.9 % 06/19/25 05:05 Lymph % (Auto) 26.7 % 06/19/25 05:05 [place] % (Auto) 6.5 % 06/19/25 05:05 Eos % (Auto) 1.7 % 06/19/25 05:05 Baso % (Auto) 0.9 % 06/19/25 05:05 Neut # (Auto) 4.04 10^3/uL (1.8-7.7) 06/19/25 05:05 Lymph # (Auto) 1.7 10^3/uL (0.8-4.8) 06/19/25 05:05 [place] # (Auto) 0.4 10^3/uL (0.2-0.9) 06/19/25 05:05 Eos # (Auto) 0.1 10^3/uL (0.0-0.8) 06/19/25 05:05 Baso # (Auto) 0.1 10^3/uL (0.0-0.1) 06/19/25 05:05 Nucleated RBC % (auto) 0 % 06/19/25 05:05 Nucleated RBCs # 0.0 /100WBC 06/19/25 05:05 Sodium 140 mmol/L (136-145) 06/19/25 05:05 Potassium 3.6 mmol/L (3.5-5.1) 06/19/25 05:05 Chloride 104 mmol/L (98-107) 06/19/25 05:05 Carbon Dioxide 23 mmol/L (22-29) 06/19/25 05:05 Anion Gap 16.6 (5-19) 06/19/25 05:05 BUN 9 mg/dL (6-20) 06/19/25 05:05 Creatinine 0.7 mg/dL (0.5-0.9) 06/19/25 05:05 GFR Calculation 102.8 mL/min (90-130) 06/19/25 05:05 Glucose 84 mg/dL (65-115) 06/19/25 05:05 Calculated Osmolality 288 mOsm/kg (285-295) 06/19/25 05:05 Calcium 9.0 mg/dL (8.5-10.5) 06/19/25 05:05 Magnesium 2.0 mg/dL (1.7-2.3) 06/19/25 05:05 Total Bilirubin 0.6 mg/dL (0.15-1.2) 06/19/25 05:05 AST 17 U/L (0-32) 06/19/25 05:05 ALT 17 U/L (0-33) 06/19/25 05:05 Alkaline Phosphatase 85 U/L (35-105) 06/19/25 05:05 Total Protein 6.6 g/dL (6.6-8.7) 06/19/25 05:05 Albumin 4.1 g/dL (3.5-5.2) 06/19/25 05:05 Globulin 2.5 g/dL (1.3-4.6) 06/19/25 05:05 TSH 1.73 uIU/mL (0.27-4.20) 06/18/25 11:30 HCG, Qual Negative (Negative) 06/18/25 19:45 Urine Color Yellow (Yellow) 06/18/25 19:45 Urine Appearance Clear (CLEAR) 06/18/25 19:45 Urine pH 6.0 (5-7) 06/18/25 19:45 Ur Specific [place] 1.028 (1.005-1.030) 06/18/25 19:45 Urine Protein Negative (Negative) 06/18/25 19:45 Urine Glucose (UA) Negative (Normal) 06/18/25 19:45 Urine Ketones 2+ (Negative) H 06/18/25 19:45 Urine Blood Negative (Negative) 06/18/25 19:45 Urine Nitrate Negative (Negative) 06/18/25 19:45 Urine Bilirubin Negative (Negative) 06/18/25 19:45 Urine Urobilinogen 1.0 mg/dL (Negative) 06/18/25 19:45 Ur Leukocyte Esterase 1+ (Negative) A 06/18/25 19:45 Urine RBC 0-2 /hpf (0-2) 06/18/25 19:45 Urine WBC 11-20 /hpf (0-5) H 06/18/25 19:45 Ur Squamous Epith Cells 11-20 /hpf (0-5) H 06/18/25 19:45 Amorphous Sediment Not Reportable 06/18/25 19:45 Urine Bacteria 1+ /hpf (NONE) H 06/18/25 19:45 Hyaline Casts 0-4 /lpf H 06/18/25 19:45 Urine Yeast Trace /hpf 06/18/25 19:45 Salicylates < 0.3 mg/dL (3-10) L 06/18/25 11:30 Urine Opiates Screen Negative ng/mL (Negative) 06/18/25 19:45 Acetaminophen < 5.0 ug/mL (10-30) L 06/18/25 11:30 Ur Barbiturates Screen Negative ng/mL (Negative) 06/18/25 19:45 Ur Phencyclidine Scrn Negative ng/mL (Negative) 06/18/25 19:45 Ur Amphetamines Screen Negative ng/mL (Negative) 06/18/25 19:45 U Benzodiazepines Scrn Negative ng/mL (Negative) 06/18/25 19:45 Urine Cocaine Screen Negative ng/mL (Negative) 06/18/25 19:45 U Marijuana (THC) Screen Positive ng/mL (Negative) H 06/18/25 19:45 Ethyl Alcohol < 10 mg/dL (0-10) 06/18/25 11:30 Recent Clincial Data Last Vital Signs Temp 98.0 F 06/19/25 12:00 Pulse 97 06/19/25 14:00 Resp 18 06/19/25 14:00 BP 150/93 06/19/25 14:00 Pulse Ox 98 06/19/25 14:00 O2 Del Method Room Air 06/19/25 14:00 Vital Signs Temp Pulse Resp BP Pulse Ox O2 Del Method 06/19/25 14:00 97 18 150/93 98 Room Air 06/19/25 13:00 83 18 128/71 98 06/19/25 12:00 98.0 F 73 20 H 144/88 96 Room Air 06/19/25 10:00 103 H 16 137/70 96 Room Air 06/19/25 09:00 94 15 123/80 99 06/19/25 08:00 98.2 F 87 15 129/78 100 Room Air 06/19/25 07:00 76 17 128/79 98 06/19/25 06:00 82 21 H 128/79 98 Room Air 06/19/25 05:45 91 06/19/25 05:30 84 14 139/83 98 Room Air 06/19/25 05:00 87 21 H 139/83 100 Room Air 06/19/25 04:30 72 17 124/81 100 Room Air Intake & Output/Weight 06/17/25 06/18/25 06/19/25 06/20/25 06:59 06:59 06:59 06:59 Intake Total 2362.584 / 2362.584 835.416 / 835.416 Output Total 200 / 200 Balance 2162.584 / 2162.584 835.416 / 835.416 Weight 117.2 kg Vitals Last Vital Signs Temp 98.0 F 06/19/25 12:00 Pulse 97 06/19/25 14:00 Resp 18 06/19/25 14:00 BP 150/93 06/19/25 14:00 Pulse Ox 98 06/19/25 14:00 O2 Del Method Room Air 06/19/25 14:00 TS Medications Medications Acetaminophen (Acetaminophen 325 Mg Tablet) 650 mg PO Q6H PRN PRN Reason: MILD PAIN Last Admin: 06/19/25 06:08 Dose: 650 mg Diltiazem HCl (Diltiazem 30 Mg Tablet) 30 mg PO Q6H VANI Stop: 06/20/25 18:01 Last Admin: 06/19/25 15:47 Dose: 30 mg Enoxaparin Sodium (Enoxaparin 40 Mg/0.4 Ml Syringe) 40 mg SUBCUT Q24H VANI Last Admin: 06/19/25 15:47 Dose: 40 mg Ondansetron HCl (Ondansetron 2 Mg/Ml Sdv 2 Ml) 4 mg IVP Q6H PRN PRN Reason: NAUSEA AND VOMITING Discontinued Medications Sodium Chloride (Sodium Chloride 0.45%) 1,000 mls @ 125 mls/hr IV .Q8H VANI Stop: 06/19/25 14:59 Last Admin: 06/19/25 07:59 Dose: 125 mls/hr Allergies NSAIDS (Non-Steroidal Anti-Inflamma Allergy (Verified 05/28/25 08:29) Unknown Home Medications bupropion HCl 150 mg 24 hr tablet, extended release 150 mg PO DAILY 06/18/25 [History Confirmed 06/18/25] Discharge Plan Discharge Patient Disposition: Xfer Psychiatric Hosp Condition: Stable Prescriptions: No Action bupropion HCl 150 mg tablet extended release 24 hr 150 mg PO DAILY [employer] [place] for DC: Psychiatry Patient Instructions: Opioid Safety, Patient Portal & Eusebio Instructions Activity Restrictions/Additional Instructions: Or other instructions as to be determined by the receiving unit. Transfer Attestations Time Spent in Transfer Care: less than 30 min Quality Metrics Clinical Quality Measures [ No reported AMI, CVA or VTE this stay] Coding Level of Care Code Acute Code for g Fwd Diagnoses Drug overdose, intentional T50.902A Suicide attempt T14.91XA
--- NOTE | 2025-06-19 16:31 | PC.NURSE ---
Report called to NPU nurse.
--- NOTE | 2025-06-19 17:09 | PC.NURSE ---
Transferred to NPU via wheelchair with security at bedside.
[2025-06-20 04:52] VITALS: BP 125/76; PULSE 89; RESP 20; TEMP 36.6; O2SAT 99
[2025-06-20 10:12] VITALS: BP 127/78; PULSE 104
--- NOTE | 2025-06-20 11:24 | P.NPUPN_ITS ---
Subjective NPU 2 Subjective: Patient presented today reporting that she had only been on the Wellbutrin for couple of weeks. She had been off of antidepressants for some time and only been in therapy and reportedly they wanted to give her something that may be address some possible ADHD symptoms as well as treated her depression and anxiety. She does not feel that the medication itself caused the problem reporting that she had been feeling bad already. But we discussed not restarting the Wellbutrin. However she did identify that she had been off of psychiatric medication for 6 years but before that she had significant success with Prozac and we discussed the risks, benefits and alternatives of restarting Prozac at 20 mg p.o. daily and she understood and agreed to proceed as is documented in this note. Mental Status Exam 2 MSE Comments: This is an obese white female in hospital gown with limited grooming but adequate eye contact. No abnormal movements except for mild psychomotor retardation. Cooperative with exam and mild distress. Speech was decreased rate and volume. Mood described as struggling but doing his best as I can, affect congruent. Thought process organized. Thought content: Patient denied current suicidal or homicidal ideation, there were no delusions reported or noted, she denied any auditory or visual hallucinations. Attention and concentration were intact and memory appeared reliable but none were formally tested. She is alert and oriented x 3. Insight and judgment are limited impulse control impaired. Vitals/I&O/Wt Last Vital Signs Temp 97.8 F 06/20/25 04:52 Pulse 89 06/20/25 04:52 Resp 20 H 06/20/25 04:52 BP 125/76 06/20/25 04:52 Pulse Ox 99 06/20/25 04:52 O2 Del Method Room Air 06/20/25 04:52 06/19/25 06/20/25 06/20/25 22:59 06:59 14:59 Intake Total 300 / 1135.416 Balance 300 / 1135.416 Weight last 48 hrs Weight 117.2 kg Weight 118 kg Weight 119.295 kg Data NPU 06/19/25 05:05 06/19/25 05:05 Micro: Microbiology 06/18/25 19:45 Urine Culture - Final Urine,Clean Catch Microbiology 06/18/25 19:45 Urine,Clean Catch Urine Culture - Final A&P Assessment and plan 1. HAILE (generalized anxiety disorder): 2. Depression: 3. Drug overdose, intentional: 4. Suicide attempt: Plan: This is a 24-year-old white female with a long history of mental health issues and psychosocial stressors but unknown to the psychiatry service line who presents after a significant suicide attempt that led to initial observation in the ICU preparing for transfer to the neuropsychiatric unit. 1. Continue current medication except for discontinue Wellbutrin XL. Restarted Prozac 20 mg p.o. daily. 2. Transferred to the neuropsychiatric unit when medically stable. 3. Encourage individual, group and milieu therapy. 4. Switch to every 15 minute checks after she reaches the unit. 5. Encourage sober living treatment after discharge at the highest level care to which she is willing to commit. 6. Obtain collateral information. 7. Observe against the backdrop of the 96-hour hold. PDMP PDMP Reviewed: Not Reviewed Involuntary Hold Information 2 Hold Status: Legal Status: 96 Hour Hold Date/Time Hold Expires: 1 08/24/24@1130 Attestations NPU 2 Medical Necessity Statement*: Inpatient hide lesion is medically necessary and the clinically appropriate intervention at this time. We will monitor/initiate medications and make changes as indicated. Likely length of stay 3-5 days. Coding Level of Care Code Acute Code for [facility] Fwd Diagnoses HAILE (generalized anxiety disorder) F41.1 Depression F32.A Drug overdose, intentional T50.902A Suicide attempt T14.91XA
[2025-06-20 14:00] VITALS: BP 129/70; PULSE 93; RESP 15; TEMP 36.9; O2SAT 97
--- NOTE | 2025-06-20 15:48 | PC.NURSE ---
Dr. Wood gave a v/o for Prozac 20mg po daily, give a dose now.
[2025-06-20 17:26] VITALS: BP 121/70; PULSE 104; O2SAT 97
[2025-06-20 20:57] VITALS: BP 129/70; PULSE 101; RESP 18; TEMP 36.9; O2SAT 97
[2025-06-20 23:08] VITALS: BMI 39.0
[2025-06-21 06:00] VITALS: BP 115/71; PULSE 72; RESP 17; TEMP 36.3; O2SAT 98
--- NOTE | 2025-06-21 11:50 | P.NPUPN_ITS ---
Subjective NPU 2 Subjective: Patient presented today reporting that things are going okay with being back on the Prozac. We discussed the circumstances surrounding her overdose and she identified that there were a lot of stressors going on prior to the introduction of the Wellbutrin XL. Namely she was going through a divorce and recently lost her job. She reports that both she and her have people they are dating but still have significant feelings for each other. She reports she was the one that initiated the divorce and that some of her behaviors are impulsive. They do have 1 child together. She has spoken about some issues with impulsivity and focus that have been longstanding. But she does acknowledge that there are significant issues that is still need to be figured out/determine for her to be able to move forward but she is unclear what is the best thing to do. She denied any side effects to her medication. Mental Status Exam 2 MSE Comments: This is an obese white female in hospital gown with limited grooming but adequate eye contact. No abnormal movements except for mild psychomotor retardation. Cooperative with exam in mild distress. Speech was decreased rate and volume. Mood described as doing a little better, affect congruent. Thought process organized. Thought content: Patient denied current suicidal or homicidal ideation, there were no delusions reported or noted, she denied any auditory or visual hallucinations. Attention and concentration were intact and memory appeared reliable but none were formally tested. She is alert and oriented x 3. Insight and judgment are limited impulse control impaired. Vitals/I&O/Wt Last Vital Signs Temp 97.4 F L 06/21/25 06:00 Pulse 72 06/21/25 06:00 Resp 17 06/21/25 06:00 BP 115/71 06/21/25 06:00 Pulse Ox 98 06/21/25 06:00 O2 Del Method Room Air 06/21/25 06:00 Weight last 48 hrs Weight 119.975 kg Data NPU 06/19/25 05:05 06/19/25 05:05 A&P Assessment and plan 1. HAILE (generalized anxiety disorder): 2. Depression: 3. Drug overdose, intentional: 4. Suicide attempt: Plan: This is a 24-year-old white female with a long history of mental health issues and psychosocial stressors but unknown to the psychiatry service line who presents after a significant suicide attempt that led to initial observation in the ICU preparing for transfer to the neuropsychiatric unit. 1. Continue current medication except for discontinue Wellbutrin XL. Restarted Prozac 20 mg p.o. daily. 2. Transferred to the neuropsychiatric unit when medically stable. 3. Encourage individual, group and milieu therapy. 4. Switch to every 15 minute checks after she reaches the unit. 5. Encourage sober living treatment after discharge at the highest level care to which she is willing to commit. 6. Obtain collateral information. 7. Observe against the backdrop of the 96-hour hold. PDMP PDMP Reviewed: Not Reviewed Involuntary Hold Information 2 Hold Status: Legal Status: 96 Hour Hold Date/Time Hold Expires: 1 08/24/24@1130 Attestations NPU 2 Medical Necessity Statement*: Inpatient hide lesion is medically necessary and the clinically appropriate intervention at this time. We will monitor/initiate medications and make changes as indicated. Likely length of stay 2-4 days. Coding Level of Care Code Acute Code for g Fwd Diagnoses HAILE (generalized anxiety disorder) F41.1 Depression F32.A Drug overdose, intentional T50.902A Suicide attempt T14.91XA
[2025-06-21 14:00] VITALS: BP 132/75; PULSE 99; RESP 16; O2SAT 100
[2025-06-21 21:30] VITALS: BP 121/78; PULSE 82; RESP 19; TEMP 36.8; O2SAT 97
[2025-06-22 06:00] VITALS: BP 135/77; PULSE 94; RESP 19; TEMP 36.6; O2SAT 99
[2025-06-22 14:00] VITALS: BP 148/74; PULSE 78; RESP 16; TEMP 37.2; O2SAT 98
--- NOTE | 2025-06-22 15:53 | P.NPUPN_ITS ---
Subjective NPU 2 Subjective: 24-year-old female admitted with an over dose on Wellbutrin XL. She had continued to report depressed mood. She had reported having significant problems with attention and concentration. She reports that her mood was starting to feel better. She had reported a history of sleep apnea that had been untreated although she had reported significant weight loss may have contributed to its improvement. She reported having difficulties with staying on task. She reports that she had been more stressed by her pending divorce. She had reported that she had not attended to any follow-up routinely since her gastric bypass surgery. She denied any drug or alcohol use. Mental Status Exam 2 MSE Comments: This is an obese white female in hospital gown with limited grooming but adequate eye contact. No abnormal movements except for mild psychomotor retardation. She was cooperative with exam in mild distress. Speech was decreased in rate and normal in volume. Mood described as okay. little better, affect congruent. Thought process organized. Thought content: Patient denied current suicidal or homicidal ideation, there were no delusions reported or noted, she denied any auditory or visual hallucinations. Attention span was poor. She is alert and oriented x 3. Insight and judgment are limited impulse control impaired. Recent and remote memory were grossly intact. Vitals/I&O/Wt Last Vital Signs Temp 98.9 F 06/22/25 14:00 Pulse 78 06/22/25 14:00 Resp 16 06/22/25 14:00 BP 148/74 06/22/25 14:00 Pulse Ox 98 06/22/25 14:00 O2 Del Method Room Air 06/22/25 14:00 Weight last 48 hrs Weight 119.975 kg Data NPU 06/19/25 05:05 06/19/25 05:05 A&P Assessment and plan 1. Depression: 2. HAILE (generalized anxiety disorder): 3. ADHD, predominantly inattentive type: 4. Drug overdose, intentional: 5. Suicide attempt: Plan: This is a 24-year-old white female with a long history of mental health issues and psychosocial stressors but unknown to the psychiatry service line who presents after a significant suicide attempt that led to initial observation in the ICU preparing for transfer to the neuropsychiatric unit. 1. Continue current medication except for discontinue Wellbutrin XL. Increase prozac to 30mg daily. Check labs including Iron, ferritin, b12, folate, vit D3. vitamin a, calcium and thiamine. Consider ritalin 10mg bid to target adhd. 2. Transferred to the neuropsychiatric unit when medically stable. 3. Encourage individual, group and milieu therapy. 4. Switch to every 15 minute checks after she reaches the unit. 5. Encourage sober living treatment after discharge at the highest level care to which she is willing to commit. 6. Obtain collateral information. 7. Observe against the backdrop of the 96-hour hold. PDMP PDMP Reviewed: Not Reviewed Involuntary Hold Information 2 Hold Status: Legal Status: 96 Hour Hold Date/Time Hold Expires: 1 08/24/24@1130 Attestations NPU 2 Medical Necessity Statement*: Inpatient hospitalization is medically necessary and the clinically appropriate intervention at this time. We will monitor/initiate medications and make changes as indicated. The patient's likely length of stay is 2-4 days. Coding Level of Care Code Acute Code for g Fwd Diagnoses Depression F32.A HAILE (generalized anxiety disorder) F41.1 ADHD, predominantly inattentive type F90.0 Drug overdose, intentional T50.902A Suicide attempt T14.91XA
[2025-06-22 21:14] VITALS: BP 130/78; PULSE 82; RESP 18; TEMP 36.8; O2SAT 99
--- NOTE | 2025-06-22 22:24 | PC.NURSE ---
ROOM ASSIGNMENT PATIENT MOVED TO ROOM TO ROOM 122 TO ACCOMMODATE FOR A MALE PATIENT. PATIENT AGREED WITHOUT INCIDENT.
[2025-06-23 06:00] VITALS: BP 124/67; PULSE 78; RESP 18; TEMP 36.6; O2SAT 98
[2025-06-23] MEDS: cetylpyridinium Lozenge 1 EACH MUCOUS MEM ×2 (07:05→11:26)
[2025-06-23 14:00] VITALS: BP 131/74; PULSE 87; RESP 16; TEMP 36.9; O2SAT 99
[2025-06-23 14:07] VITALS: BP 131/74; PULSE 87; RESP 16; TEMP 36.9; O2SAT 99
--- NOTE | 2025-06-23 14:07 | P.NPUDS_ITS ---
Diagnoses at Discharge Discharge Diagnosis 1. Depression: 2. HAILE (generalized anxiety disorder): 3. ADHD, predominantly inattentive type: 4. Drug overdose, intentional: 5. Suicide attempt: Reason for Visit Reason for Visit: Overdose on Wellbutrin Brief History: History of Present Illness Lakeshia Rider is a 24 year old female who presented to the emergency department with the following report: Chief Complaint: Overdose Stated Complaint: over dose Time Seen by Provider: 06/18/25 11:23 History of Present Illness: 24-year-old female with a history of dep ression who was recently started on Wellbutrin who took approximately fourteen 150 mg Wellbutrin tablets just over an hour ago and attempt to kill herself. She has a depressed affect. She says she has been thinking about doing this. Nothing in particular or inciting that caused it. No altered mental status. No focal motor deficits. No difficulty breathing. She was admitted to the ICU for definitive treatment of those issues secondary to concerns for seizures after the Wellbutrin overdose. The plan was then to have her transferred to the neuropsychiatric unit. A psychiatric consult was requested in the event that she did not come to the unit quickly. She is unknown to [facility] psychiatry through inpatient or outpatient services. She presented today fairly stoic but acknowledging that things have gotten to a place where she did attempt to kill herself. She reports that there are many factors that that this was not prepared to review those at the moment. She endorsed an understanding of the need for continued inpatient psychiatric care and we discussed the fact that she would be going to the neuropsychiatric unit shortly after transfer orders were placed and will be seen throughout the weekend and the likelihood it would be with continued reports of syncope she could be discharged at some point next week. We discussed given her behavior that led to the hospitalization and observation in the ICU that there would not be discharged prior to that. She denied any major incident that led to her action and we reported that we would work with her to find a alternative medication for the Wellbutrin once we have a better understanding of her history. She denied any current issues with any prescribed medications. Psychiatric history: history of treatment for depression in past outpatient with Prozac, no inpatient psychiatric history. Medical history: hx of Gastric bypass surgery, history of sleep apnea, hx of morbid obesity. Hospital Course Hospital Course Patient was monitored on telemetry, while she was cautiously rehydrated. Suicide precautions were taken. Other symptoms were treated empirically. As of this morning, she developed mild tachycardia, which was further controlled with low-dose diltiazem. Given stable symptoms after 2023 hrs., she is therefore deemed medically stable to be transferred to the psych floor, where she will be further treated and managed by Dr. Wood, the psychiatrist. During the hospitalization, the patient had routine laboratory studies which were within normal limits except for a few outliers.? Additionally, there was a general medical evaluation which was also within normal limits and revealed no new acute processes.? At the time of discharge, lethality was denied and psychosis was resolving.? Mood and anxiety were well managed.? The patient endorsed a plan to avoid all drugs of abuse and follow up with the aftercare recommendations of the treatment team.? The patient was evaluated and deemed to be absent credible lethality and had achieved the maximum benefit from an inpatient hospitalization, and so was discharged.? The patient was started on Prozac at 20 mg daily and titrated to a dose of 40 mg at the time of discharge. She had provided a history that was supportive of a diagnosis of ADHD and Ritalin was started at 10 mg twice a day t o be increased eventually to 10 mg 3 times a day over the next week. She had reported no side effects from the medication adjustments. She was strongly urged to take medications primarily in an immediate release form due to her history of gastric bypass surgery as there was inconsistent absorption of medications with extended release formulations. Patient was also strongly urged to follow-up with labs including iron, vitamin D3, vitamin A, thiamine, B12, and calcium and folate completed by her primary care physician. Involuntary Hold Information Hold Status: Legal Status: 96 Hour Hold Date/Time Hold Expires: 06/24/25 @ 11:30 Mental Status Exam MSE Comments: This is an obese white female in hospital gown with improved grooming and fair eye contact. No abnormal movements except for mild psychomotor retardation. She was cooperative with exam in mild distress. Speech was decreased in rate and normal in volume. Mood described as better. Her affect on discharge was brighter. Thought process organized. Thought content: Patient denied current suicidal or homicidal ideation, there were no delusions reported or noted, she denied any auditory or visual hallucinations. Attention span was fair. She is alert and oriented x 3. Insight and judgment are improved. Her impulse control appeared better. Recent and remote memory were grossly intact. Discharge Data Studies Completed and Pending: Laboratory Results WBC 6.33 10^3/uL (3.2 9-11.43) 06/19/25 05:05 RBC 4.74 10^6/uL (3.8 5-5.65) 06/19/25 05:05 Hgb 13.90 g/dL (11.27 -16.99) 06/19/25 05:05 Hct 41.5 % (36-47) 06/19/25 05:05 MCV 87.6 fl (85-98) 06/19/25 05:05 MCH 29.3 pg (27-33) 06/19/25 05:05 MCHC 33.5 g/dL (30-55) 06/19/25 05:05 RDW 12.5 % (12.1-15.1 ) 06/19/25 05:05 Plt Count 236 10^3/cmm (157 -399) 06/19/25 05:05 MPV 10.2 fL (7.4-10.4 ) 06/19/25 05:05 Neut % (Auto) 63.9 % 06/19/25 05:05 Lymph % (Auto) 26.7 % 06/19/25 05:05 Darke % (Auto) 6.5 % 06/19/25 05:05 Eos % (Auto) 1.7 % 06/19/25 05:05 Baso % (Auto) 0.9 % 06/19/25 05:05 Neut # (Auto) 4.04 10^3/uL (1.8 -7.7) 06/19/25 05:05 Lymph # (Auto) 1.7 10^3/uL (0.8- 4.8) 06/19/25 05:05 Darke # (Auto) 0.4 10^3/uL (0.2- 0.9) 06/19/25 05:05 Eos # (Auto) 0.1 10^3/uL (0.0- 0.8) 06/19/25 05:05 Baso # (Auto) 0.1 10^3/uL (0.0- 0.1) 06/19/25 05:05 Nucleated RBC % (a uto) 0 % 06/19/25 05:05 Nucleated RBCs # 0.0 /100WBC 06/19/25 05:05 Sodium 140 mmol/L (136-1 45) 06/19/25 05:05 Potassium 3.6 mmol/L (3.5-5 .1) 06/19/25 05:05 Chloride 104 mmol/L (98-10 7) 06/19/25 05:05 Carbon Dioxide 23 mmol/L (22-29) 06/19/25 05:05 Anion Gap 16.6 (5-19) 06/19/25 05:05 BUN 9 mg/dL (6-20) 06/19/25 05:05 Creatinine 0.7 mg/dL (0.5-0. 9) 06/19/25 05:05 GFR Calculation 102.8 mL/min (90- 130) 06/19/25 05:05 Glucose 84 mg/dL (65-115) 06/19/25 05:05 Calculated Osmolal ity 288 mOsm/kg (285- 295) 06/19/25 05:05 Calcium 9.0 mg/dL (8.5-10 .5) 06/19/25 05:05 Magnesium 2.0 mg/dL (1.7-2. 3) 06/19/25 05:05 Total Bilirubin 0.6 mg/dL (0.15-1 .2) 06/19/25 05:05 AST 17 U/L (0-32) 06/19/25 05:05 ALT 17 U/L (0-33) 06/19/25 05:05 Alkaline Phosphata se 85 U/L (35-105) 06/19/25 05:05 Total Protein 6.6 g/dL (6.6-8.7 ) 06/19/25 05:05 Albumin 4.1 g/dL (3.5-5.2 ) 06/19/25 05:05 Globulin 2.5 g/dL (1.3-4.6 ) 06/19/25 05:05 TSH 1.73 uIU/mL (0.27 -4.20) 06/18/25 11:30 HCG, Qual Negative (Negati ve) 06/18/25 19:45 Urine Color Yellow (Yellow) 06/18/25 19:45 Urine Appearance Clear (CLEAR) 06/18/25 19:45 Urine pH 6.0 (5-7) 06/18/25 19:45 Ur Specific Gravit y 1.028 (1.005-1.0 30) 06/18/25 19:45 Urine Protein Negative (Negati ve) 06/18/25 19:45 Urine Glucose (UA) Negative (Normal ) 06/18/25 19:45 Urine Ketones 2+ (Negative) H 06/18/25 19:45 Urine Blood Negative (Negati ve) 06/18/25 19:45 Urine Nitrate Negative (Negati ve) 06/18/25 19:45 Urine Bilirubin Negative (Negati ve) 06/18/25 19:45 Urine Urobilinogen 1.0 mg/dL (Negati ve) 06/18/25 19:45 Ur Leukocyte Amanda ase 1+ (Negative) A 06/18/25 19:45 Urine RBC 0-2 /hpf (0-2) 06/18/25 19:45 Urine WBC 11-20 /hpf (0-5) H 06/18/25 19:45 Ur Squamous Epith Cells 11-20 /hpf (0-5) H 06/18/25 19:45 Amorphous Sediment Not Reportable 06/18/25 19:45 Urine Bacteria 1+ /hpf (NONE) H 06/18/25 19:45 Hyaline Casts 0-4 /lpf H 06/18/25 19:45 Urine Yeast Trace /hpf 06/18/25 19:45 Salicylates < 0.3 mg/dL (3-10 ) L 06/18/25 11:30 Urine Opiates Scre en Negative ng/mL (N egative) 06/18/25 19:45 Acetaminophen < 5.0 ug/mL (10-3 0) L 06/18/25 11:30 Ur Barbiturates Sc reen Negative ng/mL (N egative) 06/18/25 19:45 Ur Phencyclidine S crn Negative ng/mL (N egative) 06/18/25 19:45 Ur Amphetamines Sc reen Negative ng/mL (N egative) 06/18/25 19:45 U Benzodiazepines Scrn Negative ng/mL (N egative) 06/18/25 19:45 Urine Cocaine Scre en Negative ng/mL (N egative) 06/18/25 19:45 U Marijuana (THC) Screen Positive ng/mL (N egative) H 06/18/25 19:45 Ethyl Alcohol < 10 mg/dL (0-10) 06/18/25 11:30 Vitals: Last Vital Signs Temp 98.4 F 06/23/25 14:00 Pulse 87 06/23/25 14:00 Resp 16 06/23/25 14:00 BP 131/74 06/23/25 14:00 Pulse Ox 99 06/23/25 14:00 O2 Del Method Room Air 06/23/25 14:00 Discharge Plan Discharge Patient Disposition: Xfer Psychiatric Hosp Condition: Stable Prescriptions: New fluoxetine 20 mg Capsule 40 mg PO DAILY 30 Days Qty: 60 1RF methylphenidate HCl [Ritalin] 10 mg tablet 10 mg PO TID Qty: 90 0RF Discontinued bupropion HCl 150 mg tablet extended release 24 hr 150 mg PO DAILY [employer] OK for DC: Psychiatry Discharge Order = DC NOW: Discharge Order (Routine); Ordered 06/23/25 Ordered By: Chang Belle Referrals: Sara Lane PA [Physician, [facility] [employer]] Discharge Diet: Usual diet Patient Instructions: Fluoxetine (By mouth), Methylphenidate, Regular and Slow Release (By mouth) (Ritalin,..., ADHD in Adults (DC), Depression (DC), Anxiety (DC), Suicide Prevention (DC), Opioid Safety, Patient Portal & Eusebio Instructions Activity Restrictions/Additional Instructions: Or other instructions as to be determined by the receiving unit. Patient's Health Concerns: Suggested labs to be ordered by primary care provider include Vit D3, B12, iron studies, thiamine, vitamin A, CMP including Calcium. Discharge Attestations NPU Time Spent in Discharge Care*: less than 30 min Specific Discharge Activities: Specific discharge activities: educating patient, documenting/other paperwork and evaluating patient/reviewing data Coding Level of Care Code Acute Code for Chg Fwd Diagnoses Depression F32.A HAILE (generalized anxiety disorder) F41.1 ADHD, predominantly inattentive type F90.0 Drug overdose, intentional T50.902A Suicide attempt T14.91XA
== END 2025-06-23 15:03 | disposition home or self-care (01) | DRG 817 ==
LOC: ER 13:04 → ICU 13:32 → NP 06-19 17:13
PROVIDERS: Admitting Provider Family Medicine; Emergency Provider Emergency Medicine; Visit Provider Psychiatry & Neurology Psychiatry
DX: T43.292A Poisoning by other antidepressants, intentional self-harm, initial encounter (principal); E66.9 Obesity, unspecified; F41.1 Generalized anxiety disorder; F32.A Depression, unspecified; F90.0 Attention-deficit hyperactivity disorder, predominantly inattentive type; Y92.9 Unspecified place or not applicable; Z91.52 Personal history of nonsuicidal self-harm; Z98.84 Bariatric surgery status; Z68.39 Body mass index [BMI] 39.0-39.9, adult; Z87.891 Personal history of nicotine dependence
CPT/HCPCS: 36415; 80053; 80306; 80307; 81001; 81025; 83735; 84443; 85025; 87086; 93005; 96372; 97150; 97165; 99285; J1650; J9999